=== PATIENT | male | born 1980 | race Asian ===

== ENCOUNTER 2018-10-30 19:31 | Emergency (ER) | payer BC ==
[2018-10-30 19:53] VITALS: BP 161/92; PULSE 67; RESP 18; TEMP 98.2
[2018-10-30] MEDS ORDERED: DIPH,PERTUS(ACELL)TETVAC-LF 0.5 ML VIAL IM ONE (20:14)
[2018-10-30] MEDS ORDERED: LIDOCAINE 1% INJ 10MG/ML (20 ML MDV) SQ ONE (20:15)
--- NOTE | 2018-10-30 20:17 | ED ---
General Adult HPI - General Chief complaint: Wound/Laceration Stated complaint: Finger Lac Time Seen by Provider: 10/30/18 19:57 Source: patient Mode of arrival: ambulatory Limitations: no limitations - History of Present Illness Initial comments: Dictation was produced using [employer] dictation software. please excuse any grammatical, word or spelling errors. Chief Complaint: 38-year-old male presents with left fourth digit laceration History of Present Illness: 38-year-old male he was at one of our local forms when he actually cut himself with a blade. 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 Patient states his tetanus is not up-to-date. He has no ALLERGIES. Patient denies any decreased function of his left fourth digit. The ROS documented in this emergency department record has been reviewed and confirmed by me. Those systems with pertinent positive or negative responses have been documented in the HPI. All other systems are other negative and/or noncontributory. PHYSICAL EXAM: General Impression: Alert and oriented x3, not in acute distress HEENT: Normocephalic atraumatic, extra-ocular movements intact, pupils equal and reactive to light bilaterally, mucous membranes moist. Cardiovascular: Heart regular rate and rhythm, S1&S2 audible, no murmurs, rubs or gallops Chest: Lungs clear to auscultation bilaterally, no rhonchi, no wheeze, no rales Abdomen: Bowel sounds present, abdomen soft, non-tender, non-distended, no organomegaly Musculoskeletal: Pulses present and equal in all extremities, no peripheral edema Motor: no focal deficits noted Neurological: CN II-XII grossly intact, no focal motor or sensory deficits noted Skin: Intact with no visualized rashes Psych: Normal affect and mood Left hand: 1 cm with a laceration to the proximal interphalangeal joint, no expose joint or tendon. Dorsiflexion and volar flexion is intact. 1 was irrigated. No foreign bodies noted. X-rays unremarkable. Laceration repaired at bedside using 5-0 nylon. Patient given dressing with bacitracin. Patient clear for discharge. Told to have sutures removed in 7 days. Told to return to emergency department for any signs of infection. Tetanus was updated. ED course: 38-year-old male presents with laceration to the left fourth digit. Injury occurred approximately 2 hours prior to arrival. Vital signs upon arrival are within acceptable limits. - Related Data Home Medications Medication Instructions Recorded Confirmed No Known Home Medications 12/31/13 10/30/18 Allergies Allergy/AdvReac Type Severity Reaction Status Date / Time No Known Allergies Allergy Verified 10/30/18 20:29 Review of Systems ROS Statement: Those systems with pertinent positive or pertinent negative responses have been documented in the HPI. ROS Other: All systems not noted in ROS Statement are negative. Past Medical History Past Medical History: No Reported History History of Any Multi-Drug Resistant Organisms: None Reported Past Surgical History: No Surgical Hx Reported Past Psychological History: No Psychological Hx Reported Smoking Status: Never smoker Past Alcohol Use History: None Reported Past Drug Use History: None Reported General Exam Limitations: no limitations Course Vital Signs 10/30/18 19:50 Temperature 98.2 F Pulse Rate 67 Respiratory 18 Rate Blood Pressure 161/92 O2 Sat by Pulse 98 Oximetry Procedures - Laceration Laceration #1 Consent Obtained: verbal consent Indication: laceration Site: other (finger) Description: linear Depth: simple, single layer Anesthetic Used: lidocaine 1% Anesthesia Technique: nerve block (digit block) Pre-repair: wound explored, irrigated extensively Type of Sutures: nylon Size of Sutures: 5-0 Number of Sutures: 3 Technique: simple, interrupted Patient Tolerated Procedure: well Disposition Clinical Impression: Laceration Disposition: HOME SELF-CARE Condition: Good Instructions (If sedation given, give patient instructions): Laceration (ED), Care For Your Stitches (ED) Additional Instructions: suture removal in 7 days Is patient prescribed a controlled substance at d/c from ED?: No Referrals: None,Stated [Primary Care Provider] - 1-2 days Time of Disposition: 21:15
--- NOTE | 2018-10-30 20:46 | XR ---
EXAMINATION TYPE: XR finger LT DATE OF EXAM: 10/30/2018 COMPARISON: NONE HISTORY: Laceration TECHNIQUE: 3 views FINDINGS: I see no fracture nor dislocation. Joint spaces are fairly normal. There are no erosions. IMPRESSION: Negative left middle finger exam.
== END 2018-10-30 21:19 | disposition home or self-care (01) ==
LOC: EC 19:31
DX: S61.215A Laceration without foreign body of left ring finger without damage to nail, initial encounter (principal); W26.0XXA Contact with knife, initial encounter
CPT/HCPCS: 73140; 90715; 99283; 12001; 90471; J2001